=== PATIENT | female | born 1965 | race Caucasian/White ===

== ENCOUNTER 2019-07-25 11:22 | Emergency (ER) | payer OTHER, SELFPAY ==
[2019-07-25 11:25] VITALS: BP 138/81; PULSE 72; RESP 17; TEMP 36.8; O2SAT 100; BMI 22.3
--- NOTE | 2019-07-25 12:01 | RAD_ITS ---
STUDY: X-RAY - LEFT ANKLE REASON FOR EXAM: Female, 54 years old. rolled left ankle today at work TECHNIQUE: 3 view(s) of the ankle. COMPARISON: None. FINDINGS: Normal visualized distal tibia and fibula. There is a subtle linear lucency extending through the distal fibula/lateral malleolus (below tibiotalar joint) extending to the lateral cortical margin. No displacement. Normal tibiotalar articulation and ankle mortise. Normal visualized talus and calcaneus. The visualized subtalar, talonavicular, calcaneocuboid and tarsal articulations are normal. There is lateral ankle soft tissue swelling. RAD/Ankle min 3 Views IMPRESSION: Nondisplaced Mcguire A lateral malleolus fracture. Soft tissue swelling. Electronically Signed: Luis Morillo MD (Brooks) at 12:25 EST , Service support ,
--- NOTE | 2019-07-25 12:01 | ED.VISSUMM ---
- ER Visit Summary Date of Service: 07/25/19 Chief Complaint: Left ankle pain History of Present Illness: The patient is a 54 F who presents with left ankle pain that began today. Patient states she tripped while she was at work and inverted her left ankle. Patient states she felt a popping sensation. Patient states the pain is over the lateral aspect of the left ankle. Patient states the pain is worse with movement and weightbearing. Patient states pain improves with rest. Patient denies any paresthesias or weakness. Patient states that after the injury she felt lightheaded and sat down. Patient states the lightheadedness improved after this. Patient states this only lasted a few seconds. Physical Examination: Vital signs are stable. Patient is afebrile. Patient is in no acute distress. Musculoskeletal exam reveals tenderness over the lateral aspect of the left ankle. There is some mild edema. There is no ecchymosis. There is no bony crepitance or step-off. Range of motion was slightly limited in all motions of the left ankle secondary to pain. There is no tenderness over the proximal fibula. There is no tenderness over the fifth metatarsal. Sensation was intact to light touch in all digits. Capillary refill was less than 2 seconds in all digits. Pedal pulses are equal bilaterally. Test Results: X-rays of the left ankle were obtained. There is a nondisplaced distal fibula fracture below the level of the joint line. This was interpreted by the radiologist and myself. Emergency Department Course and Treatment: Patient was given a dose of [place] here. Patient was instructed to ice and elevate the left ankle. Patient was placed in a walking boot. Patient was instructed to follow-up with Dr. Warren from orthopedics. Patient was given a prescription for a short course of [place]. Patient was given restrictions for work. Patient understands and was agreeable with the plan. All questions were answered. Disposition: Discharge home Impression: Acute fracture left distal fibula This note was generated with Potential dictation software. It may contain incorrect words, spelling, and punctuation that were not noted in review of the chart prior to signing ED Disposition - Plan for ED Patient: Disposition: Home or Assisted Living Diagnosis: Fracture of distal end of left fibula Instructions: ANKLE FRACTURE (Distal Fibula), closed Prescriptions: Hydrocodone Bitart/Apap 5-325 [[place] 5MG-325MG] 1 tab PO Q6H PRN PRN 3 Days #10 tab PRN Reason: Pain Prescription Printed Referrals: Care Physician,No Primary [Primary Care Provider] - Demetria Warren DO [STAFF PHYSICIAN] - 3-5 Days [facility] [GROUP OF PHYSICIANS] - 5-7 Days
[2019-07-25] MEDS: HYDROcodone Bitartrate/Apap 5/325 Tablet PO (13:12)
== END 2019-07-25 13:21 | disposition home or self-care (01) ==
PROVIDERS: Emergency Provider Emergency Medicine
DX: S82.65XA Nondisplaced fracture of lateral malleolus of left fibula, initial encounter for closed fracture (principal); W01.0XXA Fall on same level from slipping, tripping and stumbling without subsequent striking against object, initial encounter; Y93.9 Activity, unspecified; Y92.9 Unspecified place or not applicable
CPT/HCPCS: 73610; 99283

== ENCOUNTER → 2019-08-06 08:45 | Outpatient (CLI) | payer OTHER, SELFPAY ==
[2019-07-28 10:12] VITALS: BMI 22.3
--- NOTE | 2019-08-06 08:46 | RAD_ITS ---
STUDY: X-RAY - LEFT ANKLE REASON FOR EXAM: Follow-up fracture. TECHNIQUE: 3 view(s) of the ankle. COMPARISON: Radiographs 05/24/2020. FINDINGS: There is no interval change of the subtle lateral malleolar fracture largely obscured by overlying cast. Normal tibiotalar articulation and ankle mortise. Normal visualized talus and calcaneus. The visualized subtalar, talonavicular, calcaneocuboid and tarsal articulations are normal. RAD/Ankle min 3 Views IMPRESSION: No interval change of nondisplaced lateral malleolar fracture. Electronically Signed: Otoniel Harvey MD at 11:19 EST Tel , Service support ,
== END ==
PROVIDERS: Referring Provider Orthopaedic Surgery; Visit Provider Orthopaedic Surgery
DX: S82.65XA Nondisplaced fracture of lateral malleolus of left fibula, initial encounter for closed fracture (principal)
CPT/HCPCS: 73610

== ENCOUNTER → 2019-08-13 09:19 | Outpatient (CLI) | payer OTHER, SELFPAY ==
[2019-08-06 08:46] VITALS: BMI 22.3
--- NOTE | 2019-08-13 09:20 | RAD_ITS ---
STUDY: X-RAY - LEFT ANKLE REASON FOR EXAM: Female, 54 years old. RECHECK LEFT ANKLE. TECHNIQUE: 3 view(s) of the ankle. COMPARISON: August 06, 2019. FINDINGS: Cast application. Minimally perceptible lateral malleolus fracture line. Fracture in anatomic alignment. Ankle mortise well aligned. No dislocation. No bone destruction. RAD/Ankle min 3 Views IMPRESSION: Minimally perceptible casted lateral malleolus fracture line Fracture alignment in anatomic alignment Electronically Signed: Jung Vaca DO at 9:10 EDT Tel , Service support ,
--- NOTE | 2019-09-15 09:50 | RAD_ITS ---
STUDY: X-RAY - LEFT ANKLE REASON FOR EXAM: Fracture follow-up, cast removal. TECHNIQUE: 3 view(s) of the ankle. COMPARISON: Radiographs 08/13/2019, 08/06/2019 and 07/25/2019. FINDINGS: There is a nondisplaced healing fracture of the lateral malleolus. There is mild disuse osteoporosis. Normal tibiotalar articulation and ankle mortise. Normal visualized talus and calcaneus. The visualized subtalar, talonavicular, calcaneocuboid and tarsal articulations are normal. The soft tissue structures are unremarkable. RAD/Ankle min 3 Views IMPRESSION: Nondisplaced healing fracture of the lateral malleolus. Electronically Signed: Otoniel Harvey MD at 10:15 EDT Tel , Service support ,
== END ==
PROVIDERS: Referring Provider Physician Assistant; Visit Provider Physician Assistant
DX: S82.65XA Nondisplaced fracture of lateral malleolus of left fibula, initial encounter for closed fracture (principal)
CPT/HCPCS: 73610

== ENCOUNTER → 2019-09-15 10:01 | Outpatient (CLI) | payer OTHER, SELFPAY ==
[2019-08-13 13:32] VITALS: BMI 22.3
== END ==
PROVIDERS: Referring Provider Orthopaedic Surgery; Visit Provider Orthopaedic Surgery
DX: S82.65XD Nondisplaced fracture of lateral malleolus of left fibula, subsequent encounter for closed fracture with routine healing (principal)
CPT/HCPCS: 73610

== ENCOUNTER 2020-08-08 07:12 | Emergency (ER) | payer OTHER, SELFPAY ==
[2019-09-15 10:18] VITALS: BMI 22.3
[2020-08-08 07:12] VITALS: BP 119/73; PULSE 75; RESP 16; TEMP 36.2; O2SAT 98; BMI 22.3
--- NOTE | 2020-08-08 07:18 | RAD_ITS ---
STUDY: X-RAY - RIGHT ANKLE REASON FOR EXAM: Right ankle pain, right ankle injury yesterday. TECHNIQUE: 3 view(s) of the ankle. COMPARISON: None. FINDINGS: Normal visualized distal tibia. There is a small nondisplaced avulsion fracture of the distal aspect of the lateral malleolus. There is a tibiotalar joint effusion. Normal visualized talus and calcaneus. The visualized subtalar, talonavicular, calcaneocuboid and tarsal articulations are normal. There is soft tissue swelling overlying the lateral malleolus. RAD/Ankle min 3 Views IMPRESSION: Small nondisplaced avulsion fracture of the lateral malleolus. Tibiotalar joint effusion. Electronically Signed: Otoniel Harvey MD at 7:57 EST Tel , Service support ,
--- NOTE | 2020-08-08 07:19 | ED.DCSUM_ITS ---
History of Present Illness Chief Complaint: Lower Extremity Injury Informant: Patient Onset: Yesterday Context: Sudden Onset Timing: Continuous Current Severity: Moderate Maximum Severity: Moderate Narrative: The patient is a 55-year-old female presents to the emergency department with right ankle injury. The patient was working yesterday. 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 She thought that she was clear. She stepped on the lift and suffered an inversion injury of the ankle. Since then, she has had a lot of pain on the outside aspect of the ankle. She is still been able to bear weight. She did not fall or strike her head. She is otherwise been in her normal state of health. Prior similar symptoms: No Recent Illness/Hospitalization: No Past Medical History - Allergies and Home Meds Allergies/Adverse Reactions: Allergies prednisolone Allergy (Verified 08/08/20 07:14) Hives shellfish derived Allergy (Verified 08/08/20 07:14) Other Primary Care Physician: Demetria Warren DO [STAFF PHYSICIAN] - Prior records reviewed: Yes Past Medical History: None Surgical History: noncontributory Smoking Status: Never smoker Review of Systems General: Denies: Chills, Fever, Sweats Eyes: Denies: Visual changes - bilaterally, Diplopia ENT: Denies: Rhinorrhea, Sore throat Cardiovascular: Denies: Chest pain, Palpitations Respiratory: Denies: Dyspnea, Cough, Dyspnea on exertion Gastrointestinal: Denies: Abdominal pain, Nausea, Vomiting, Diarrhea, Melena, Hematochezia Genitourinary: Denies: Dysuria, Hematuria, Frequency Musculoskeletal: Denies: Back pain, Extremity Pain Skin: Denies: Rash, Wounds Neurological: Denies: Headache, Weakness, Numbness Physical Exam Vital Signs/Narrative: Vital Signs Temp Pulse Resp BP Pulse Ox 08/08/20 07:12 97.1 F L 75 16 119/73 98 Inital Vital Signs reviewed: Yes General: Well nourished, Well developed, No Acute Distress Head: Normocephalic, Atraumatic Eyes: Perrl, EOMI ENT: Moist mucous membranes, No rhinorrhea Neck: Supple, Nontender Cardiovascular: Regular rate, Regular rhythm, No murmurs Respiratory: No distress, CTA bilaterally, Chest nontender Abdomen: Soft, Nontender, Nondistended, Normal bowel sounds Back: Nontender, Normal Inspection Extremities: No edema, Tenderness - Tender over the right lateral malleolus. Serrano test negative. No pain at the head of the fifth metatarsal. No pain at the proximal fibula. Normal pulses. Skin: Normal color, No rash Neurological: Alert, Oriented x3, Cranial nerves II-XII grossly intact, Normal Strength, Normal Sensation Psychological: Normal affect, Normal Mood Diagnostic/Tx/Re-eval Plain films were obtained of the right ankle. These were reviewed by both myself and the radiologist. Patient has a small minimally displaced avulsion fracture of the distal end of the fibula. There is no dislocation. Rest of the joint is intact. - Medical Decision Making Patient presents with ankle injury. X-rays do demonstrate small avulsion fracture of the distal fibula. The patient was placed in a boot orthosis and crutches. Should be given a short course of analgesics and outpatient orthopedic follow-up. Impression 1. Avulsion fracture right distal fibula ED Disposition - Plan for ED Patient: Instructions: ED Ankle Fracture, Distal Fibula Prescriptions: Hydrocodone Bitart/Apap 5-325 [[place] 5MG-325MG] 1 tab PO Q6H PRN PRN 3 Days #10 tab PRN Reason: Pain Prescription Printed Referrals: Demetria Warren DO [STAFF PHYSICIAN] -
== END 2020-08-08 08:22 | disposition home or self-care (01) ==
LOC: ED 07:43
PROVIDERS: Emergency Provider Emergency Medicine
DX: S82.64XA Nondisplaced fracture of lateral malleolus of right fibula, initial encounter for closed fracture (principal); X50.1XXA Overexertion from prolonged static or awkward postures, initial encounter; Y93.9 Activity, unspecified; Y92.9 Unspecified place or not applicable
CPT/HCPCS: 73610; 99284

== ENCOUNTER 2020-09-30 10:00 | Outpatient (RCR) | payer OTHER, SELFPAY ==
--- NOTE | 2020-08-23 14:29 | HP.PTEVAL_ITS ---
Patient's Visit Information CARMINA CAMERON is a 55 year old F referred to Physical Therapy by Dr. Demetria Martin DO with a diagnosis of AVULSION FX DISTAL R FIBULA. Date of Evaluation: 08/23/20 Physical Therapist: Nasima Dan, PT, Cert MDT - Visit Plan Frequency: 2-3x /Week Duration: 6-8 WKS Plan: 10 VISITS. PATIENT IS TO CONTINUE ABOVE HEP AND COME BACK TO PT FOR A RE- CHECK IN 3 WEEKS OR SOONER IF PAIN, SWELLING OR NEW WEAKNESS DEVELOPS. AFTER FRACTURE HEALS PATIENT MAY BENEFIT FROM FURTHER RIGHT LE ROM, STRETCHING, STRENGTHENING AND PROPRIOCEPTIVE TRAINING TO HELP MEET SET GOALS. PATIENT IS AGREEABLE. EX IN PAINFREE ROM AND INTENSITY ONLY. CP NEEDED. 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 Disability: NO. Present symptoms: RIGHT ANKLE PAIN - OUTSIDE UNDER FRACTURE. SOME LO PAIN THAT PATIENT RELATES TO WALKINGIN THE BOOT. PATIENT DENIES NUMBNESS OR TINGLING. NO KNEE PAIN. Present since: AUGUST 07 2020 (17 DAYS POST INJURY). Pain Scale: WORST 2/10, LEAST 0/10. Currently: 0/10. Commenced as a result of: TRIPPED OVER A MACHINE AT WORK. STATES SHE CAME DOWN ON HER ANKLE. Symptoms at onset: GOT UP AFTER FALL, WALKED AROUND, AND WALKED HOME BUT IN THE MIDDLE OF THE NIGHT WHEN SHE GOT UP TO GO TO THE BATHROOM SHE ALMOST PASSED OUT FROM THE PAIN. Worse: PRESSURE ON THAT SPOT. NO PAIN SITTING, WALKING IN THE BOOT OR WALKING IN THE AIR CAST AT HOME UNLESS STEPS ON SOMETHING UNEVEN AND ANKLE SHIFTS. OTHERWISE NOT REALLY HAVING PAIN. Better: SITTING. Disturbed sleep: NO. SLEEPING IN AIRCAST. Previous history/Previous treatment: NO PRIOR RIGHT LE INJURIES. Treatment this episode: BOOT OUTSIDE OF HOME. AIRCAST IN HOME. TOOK ONE PAIN PILL AT ONSET. GAIT: NOT USING ANY ASSISTIVE DEVICES. Accidents: UNREMARKABLE. Unexplained weight loss: NO. Imaging: X-RAYS AT HOSPITAL NEAR TIME OF INJURY AND REPEAT X-RAY AT DR. MARTIN'S OFFICE TODAY. 08/08/20: Plain films were obtained of the right ankle. These were reviewed by both myself and the radiologist. Patient has a small minimally displaced avulsion fracture of the distal end of the fibula. There is no dislocation. Rest of the joint is intact. PMH/Recent major surgery: UNREMARKABLE OTHER THAN L ANKLE FX LAST JULY - NO SX. OTHER: PATIENT REPORTS SHE IS TO WEAN OUT OF BOOT TO AIRCAST TOLERATED PER DR. MARTIN TODAY AND FOLLOW UP IN 30 DAYS. - Objective THIS PATIENT AMBULATES INDEP'LY INTO PHYSICAL THERAPY WEARING A WALKING BOOT ON THE R LE AND NOT USING ANY ASSISTIVE DEVICES. Motor deficit: LEWIS LE STRENGTH IS WFL BUT ANKLE NOT TESTED DUE TO FRACTURE. ROM deficit: RIGHT LE WFL INCLUDING RIGHT ANKLE DORSIFLEXION AND PLANTAR FLEXION AND TOES BUT INVERSION AND EVERSION NT TESTED DUE TO FRACTURE. Core strength: FAIR. Palpation: TENDERNESS WITH LIGHT PALPATION AT THE FRACTURE SITE. NO PALPABLE EDEMA OF RIGHT FOOT OR ANKLE. TREATMENT: THER ACT: HOME INSTRUCTIONS FOR ICE, ELEVATION, CONTINUED USE OF AT LEAST AIR CAST FOR 30 DAYS UNTIL FOLLOW UP WITH DR. MARTIN INSTRUCTED AND HEP. HEP INLUDING AROM OF TOES, AP'S, HEEL SLIDES AND 4 WAY SLR'S. PATIENT DEMONSTRATED AND COMMUNICATED A GOOD UNDERSTANDING OF ALL INSTRUCTIONS AFTER GIVEN. - Goals Goal 1:: PATIENT WILL BE INDEP AND SAFE WITH GAIT ON ALL SURFACES WITHOUT DEVIATIONS AND WITHOUT BRACE WHEN OK'D BY ORTHO. Goal Time Frame: 6-8 Weeks Goal 2:: RESTORE FULL FUNCTION OF RIGHT LE IN TERMS OF STRENGTH AND ROM AFTER HEALING OF FRACTURE. Goal Time Frame: 6-8 Weeks Goal 3:: PATIENT WILL BE INDEP WITH A HEP FOR CONTINUED IMPROVEMENT ONCE FORMAL PHYSICAL THERAPY CONCLUDES. Goal Time Frame: 6-8 Weeks - Anticipated Interventions Patient/Client Instruction: Educate patient on: Condition, Plan of Care, Risk Factors For the Purpose of:: To improve self management Therapeutic Exercise to Include: Strength training, Balance training, Body mechanics, Flexibilty training, Gait and locomotor training, Neuromotor development, Passive ROM, Active ROM For the Purpose of:: To decrease pain, To increase ROM, To improve muscle p erformance and motor function, To increase tolerance to activity/condition/position, To improve ability of physical actions for home/community/work/leisure, To improve gait and locomotor functions Thank you for the opportunity to evaluate your patient. For Medicare and Medicare HMO plans, please review the plan of care and approve it. It will need to be FAXED BACK to us at [phone] for Medicare purposes. For Medicare only, by signing this I certify the plan of care. Please let me know if there are questions or concerns regarding this plan of care. Physician Signature: Date:
--- NOTE | 2020-09-13 09:13 | HP.PTREVAL_ITS ---
Dr. Demetria Martin, DO, It has been my pleasure to treat CARMINA CAMERON over the last 2 visits for AVULSION FX DISTAL R FIBULA. Please see the progress note below for an update on the physical therapy plan of care! Subjective: PATIENT REPORTS SHE STEPPED ON A STONE WITH HER BOOT ON COMING HOME FROM WORK SATURDAY. BRIEF ANKLE PAIN AT THAT TIME BUT NONE SINCE. PATIENT DENIES LO PAIN AND NUMBNESS AND TINGLING. 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 STATES SHE ONLY WEARS THE AIR CAST IN THE HOUSE AND OCCASSIONALLY DOESN'T WEAR THE AIR CAST IN THE HOUSE. NOT SLEEPIING IN AIR CAST ANY LONGER AND DENIES ANY PROBLEMS. PATIENT REPORTS SHE DOES NOT FEEL COMFORTABLE D/C'ING THE CAM BOOT WHEN OUTSIDE HER HOME UNTIL FOLLOW UP WITH DR. MARTIN. BUT SHE ONLY WEARS THE AIR CAST IN THE HOUSE. Objective/Function: PATIENT AMBULATED INDEP'LY INTO PT TODAY WEARING CAM BOOT AND WITH GOOD CADANCE AND BALANCE. PATIENT HAS GOOD RIGHT LE ROM AND STRENGTH (ANKLE IV AND EV NT) AND APPEARS TO BE HEALING WELL. VERY MILD RIGHT LATERAL ANKLE EDEMA. ABLE TO SLS X APPROX 10 SEC R LE TODAY WITHOUT UE ASSIST AND WITHOUT C/O PAIN AFTER SEVERAL ATTEMPTS. SHE TOLERATED EX PROGRESSION WELL AND IS A GOOD CONDIDATE FOR FURTHER PROGRESSION IF DR. MARTIN CONCURS AFTER SEEING HER NEXT WEEK. Plan Plan: ADD WOBBLE BOARD FOR DORSI/PLANTAR FLEX AND SB BRIDGES NEXT VISIT ELYSSA ATED. CHECK ORDERS FROM DR. MARTIN AND PROGRESS OUT OF BOOT AND AIRCAST ALLOWED. 10 VISITS. PATIENT IS TO CONTINUE ABOVE HEP AND COME BACK TO PT FOR A RE-CHECK IN 3 WEEKS OR SOONER IF PAIN, SWELLING OR NEW WEAKNESS DEVELOPS. AFTER FRACTURE HEALS PATIENT MAY BENEFIT FROM FURTHER RIGHT LE ROM, STRETCHING, STRENGTHENING AND PROPRIOCEPTIVE TRAINING TO HELP MEET SET GOALS. PATIENT IS AGREEABLE. EX IN PAINFREE ROM AND INTENSITY ONLY. CP NEEDED. Goals Goal 1:: PATIENT WILL BE INDEP AND SAFE WITH GAIT ON ALL SURFACES WITHOUT DEVIATIONS AND WITHOUT BRACE WHEN OK'D BY ORTHO. Goal Time Frame: 6-8 Weeks Goal Progress: Progressing Goal 2:: RESTORE FULL FUNCTION OF RIGHT LE IN TERMS OF STRENGTH AND ROM AFTER HEALING OF FRACTURE. Goal Time Frame: 6-8 Weeks Goal Progress: Progressing Goal 3:: PATIENT WILL BE INDEP WITH A HEP FOR CONTINUED IMPROVEMENT ONCE FORMAL PHYSICAL THERAPY CONCLUDES. Goal Time Frame: 6-8 Weeks Goal Progress: Progressing Anticipated Interventions Patient/Client Instruction: Educate patient on: Condition, Plan of Care, Risk Factors For the Purpose of:: To improve self management Therapeutic Exercise to Include: Strength training, Balance training, Body mechanics, Flexibilty training, Gait and locomotor training, Neuromotor deve lopment, Passive ROM, Active ROM For the Purpose of:: To decrease pain, To increase ROM, To improve muscle performance and motor function, To increase tolerance to activity/co ndition/position, To improve ability of physical actions for home/community/work/leisure, To improve gait and locomotor functions Please do not hesitate to contact me at [phone] by phone or if you have questions or concerns regarding this new plan of care! Sincerely, Nasima Dan, PT, Cert MDT
--- NOTE | 2020-09-30 10:29 | HP.PTDCSUM_ITS ---
It has been my pleasure to treat CARMINA CAMERON referred by Dr. Demetria Warren DO, with the diagnosis of AVULSION FX DISTAL R FIBULA for a total of 7 visit(s). Discharge Date: 09/30/20 Please see the following information for a summary of their discharge status. 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 OCCASSIONALLY SORE AFTER AN 8 OR 9 HOUR SHIFT. MAJORITY OF WORK IS ON FEET. DOING HEP. PATIENT REPORTS SHE DOES NOT FEEL LIKE CONTINUEING PT IS NECESSARY AT THIS POINT. R ANKLE Pain Intensity (Out of 10): 0 % Improvement: 95 Objective/Function: PATIENT DEMO'S GOOD PAINFREE ROM, STRENGTH AND BALANCE IN HER RIGHT LE NOW. Goal 1:: PATIENT WILL BE INDEP AND SAFE WITH GAIT ON ALL SURFACES WITHOUT DEVIATIONS AND WITHOUT BRACE WHEN OK'D BY ORTHO. Goal Progress: Goal Met Goal 2:: RESTORE FULL FUNCTION OF RIGHT LE IN TERMS OF STRENGTH AND ROM AFTER HEALING OF FRACTURE. Goal Progress: Goal Met Goal 3:: PATIENT WILL BE INDEP WITH A HEP FOR CONTINUED IMPROVEMENT ONCE FORMAL PHYSICAL THERAPY CONCLUDES. Goal Progress: Goal Met Plan: D/C TO INDEP EX. If there are questions or concerns regarding this patient's physical therapy, please feel free to call me at [phone]. Thank you for the referral of this patient. Sincerely, Nasima Dan, PT, Cert MDT
== END 2020-09-30 19:00 | disposition home or self-care (01) ==
LOC: PT 10:00
PROVIDERS: Referring Provider Orthopaedic Surgery; Visit Provider Orthopaedic Surgery
DX: S82.831D Other fracture of upper and lower end of right fibula, subsequent encounter for closed fracture with routine healing (principal)
CPT/HCPCS: 97110; 97161; 97530

== ENCOUNTER → 2025-04-14 | Outpatient (CLI) | payer OTHER, SELFPAY ==
--- NOTE | 2025-04-14 14:57 | NEURO ---
NCS and/or EMG Patient Report Ordering Doctor: Marti Brewer DATE OF SERVICE: 04/14/25 Cecily presents with complaints of numbness and tingling in the right hand. Electrodiagnostic findings: Right median motor nerve demonstrates prolonged latency with normal amplitude and reduced conduction velocity. Right ulnar motor response is within normal limits. Prolonged right median F–wave. Prolonged right median sensory latency at the wrist. Needle EMG testing was performed in the right upper limb. All muscles tested showed no evidence of denervation with normal motor unit action potentials. Electrodiagnostic assessment: This is an abnormal study. 1. Electrodiagnostic findings suggestive of right-sided median mononeuropathy. This consistent with mild right carpal tunnel syndrome Multi Select Codes Neurology Neurology Interp Codes: 95663-88 Musc test done w/n test comp (interp) and 87148-81 Nrv cndj tst 5-6 studies (interp)
== END | disposition home or self-care (01) ==
LOC: PSN 13:43
PROVIDERS: PCP Nurse Practitioner Family
DX: R20.2 Paresthesia of skin (principal); M79.601 Pain in right arm
CPT/HCPCS: 95886; 95909